=== PATIENT | female | born 1960 | race Caucasian/White ===

== ENCOUNTER 2017-12-02 09:24 | Inpatient (IN) | payer OTHER ==
[~2017-12-02] VITALS: Ht 167.6 cm; Wt 62.6 kg
--- NOTE | ~2017-12-02 | H ---
[address] [address] HISTORY AND PHYSICAL Name: SHELBI SHAW Room: [address] IN ..#: [id number] Admission: 12/02/17 Attend Phys: Gloria Painter MD Discharge: Date of : 60 Report #: [id number] THIS REPORT FOR: //name// Please refer to the History and Physical performed in the physician's office. By: [id number] Records Staff FRANKIE /DOMINICK
[~2017-12-02 09:24] MED LIST: CLEOCIN HCL150 MG PO; FLEXERIL PO; IBUPROFEN 800800 M1 PO; KEFLEX500 M2 PO
[2017-12-02 09:55] LABS: HEMATOCRIT 41.7 % (37.0-47.0); HEMOGLOBIN 13.8 gm/dL (12.0-15.0); MCH 30.7 pg (26.0-34.0); MCV 93.1 fL (80.0-100.0); MPV 7.3 fl. (7.2-11.1); RBC 4.48 mil/uL (4.20-5.00); RDW-CV 17.4 % (10.5-14.5); WBC 12.6 thou/uL (4.0-11.0)
[2017-12-02 10:03] LABS: CALCIUM 9.5 mg/dL (8.5-10.1); CREATININE 0.7 mg/dL (0.6-1.3); POTASSIUM 3.9 mmol/L (3.5-5.1)
[2017-12-02 10:07] LABS: ALBUMIN 3.2 g/dL (3.4-5.0); TOTAL BILIRUBIN 0.4 mg/dL (<0.1-1.0); TOTAL PROTEIN 8.3 g/dL (6.4-8.2)
--- NOTE | 2017-12-02 11:32 | EKG ---
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
[2017-12-02] MEDS ORDERED: ACETAMINOPHEN-1 EAC1 PO (18:06)
--- NOTE | 2017-12-02 18:10 | NUR ---
ASSUMED CARE OF PATIENT AT 1500 AFTER TRANSFER TO ROOM 118 AFTER SURGERY. PATIENT AWAKE, ALERT, AND ORIENTED APPROPRIATELY. PHYSICAL ASSESSMENT COMPLETED AND CHARTED. ADMISSION DOCUMENTATION COMPLETED WELL. GIVEN SCHEDULED MEDICATIONS, SEE EMAR FOR DOCUMENTATION. VITAL SIGNS STABLE. OXYGEN SATURATION WITHIN NORMAL LIMITS ON ROOM AIR. PATIENT TRANSFERS AND AMBULATES INDEPENDENTLY IN ROOM WITHOUT DIFFICULTY. USES CALL LIGHT APPROPRIATELY. DENIES NEEDS AT THIS TIME. CALL LIGHT WITHIN REACH. NURSING WILL CONTINUE TO MONITOR.
[2017-12-02 20:00] VITALS: BP 129/62
[2017-12-02 23:47] VITALS: BP 114/54
[2017-12-03 02:06] LABS: CA 125 46.4 U/mL (0.0-38.1)
[2017-12-03 03:15] VITALS: BP 103/47
[2017-12-03 04:40] LABS: HEMATOCRIT 35.5 % (37.0-47.0); MCH 30.4 pg (26.0-34.0); MCHC 32.4 g/dL (28.0-37.0); MCV 93.6 fL (80.0-100.0); MPV 7.7 fl. (7.2-11.1); NUCLEATED RBCS 0 /100WBC; PLATELET COUNT* 489 thou/uL (150-400); RDW-CV 17.4 % (10.5-14.5); WBC 14.8 thou/uL (4.0-11.0)
[2017-12-03 05:07] LABS: HEMOGLOBIN 11.5 gm/dL (12.0-15.0)
[2017-12-03 05:15] LABS: ALBUMIN 2.8 g/dL (3.4-5.0); CALCIUM 9.1 mg/dL (8.5-10.1); CREATININE 0.6 mg/dL (0.6-1.3); POTASSIUM 4.7 mmol/L (3.5-5.1); TOTAL BILIRUBIN 0.3 mg/dL (<0.1-1.0); TOTAL PROTEIN 6.5 g/dL (6.4-8.2)
--- NOTE | 2017-12-03 05:31 | NUR ---
Alert and oriented x 4. She is up independently in the room. She is voiding well and has had some bloody drainage and has changed her pad as needed. Vitals have been stable. She was medicated x 1 for pain. GI wants her to stay on clear liquids and probably have colonscopy on thursday per Dr Dobbs. She has been awake this shift.
[2017-12-03 06:19] LABS: ABSOLUTE LYMPHOCYTES 1.2 thou/uL (0.8-5.3); ABSOLUTE MONOCYTES 0.3 thou/uL (0.0-1.2); ABSOLUTE NEUTROPHILS 13.3 thou/uL (1.6-8.1)
[2017-12-03 06:20] LABS: ANISOCYTOSIS 1+; PLATELET ESTIMATE ADEQUATE; POIKILOCYTOSIS 1+
[2017-12-03 08:48] VITALS: BP 119/68
[2017-12-03 16:50] VITALS: BP 176/78
--- NOTE | 2017-12-03 17:02 | NUR ---
CM ASSESSMENT: Pt is A&O. Resides at home with her sig other and dtr. Pt independent with ADLs, continues to work outside of the home. Pt has a cane, walker and shower chair that she can use if necessary. No hx of HH. Hx of outpt PT. Strong support sx. Discussed Dr Painter's recommendation for HH [place], Pt plans to discuss with Dr Painter tomorrow. CM to provide [facility] list if Pt is in agreement at [place]. Following.
--- NOTE | 2017-12-03 17:19 | NUR ---
ASSUMED CARE OF PATIENT AFTER REPORT THIS MORNING. PATIENT AWAKE, ALERT, AND ORIENTED APPROPRIATELY. PHYSICAL ASSESSMENT COMPLETED AND CHARTED. COMPLAINED OF PAIN. GIVEN PRN AND SCHEDULED MEDICATIONS, SEE EMAR FOR DOCUMENTATION. VITAL SIGNS STABLE. OXYGEN SATURATION WITHIN NORMAL LIMITS ON ROOM AIR. PATIENT HAS TRANSFERRED AND AMBULATED INDEPENDENTLY IN ROOM WITHOUT DIFFICULTY. HAS STARTED COLON PREP FOR COLONOSCOPY TOMORROW. DENIES NEEDS AT THIS TIME. CALL LIGHT WITHIN REACH. NURSING WILL CONTINUE TO MONITOR.
[2017-12-03 20:00] VITALS: BP 137/75
[2017-12-04] VITALS (7 sets, daily range): BP systolic 98–137; BP diastolic 59–75
[2017-12-04 04:46] LABS: ABSOLUTE BASOPHILS 0.1 thou/uL (0.0-0.2); ABSOLUTE EOSINOPHILS 0.5 thou/uL (0.0-0.7); ABSOLUTE LYMPHOCYTES 2.1 thou/uL (0.8-5.3); ABSOLUTE MONOCYTES 0.6 thou/uL (0.0-1.2); ABSOLUTE NEUTROPHILS 5.8 thou/uL (1.6-8.1); BASOPHILS 1.1 %; HEMATOCRIT 34.6 % (37.0-47.0); HEMOGLOBIN 11.5 gm/dL (12.0-15.0); LYMPHOCYTES 23.2 %; MCH 30.9 pg (26.0-34.0); MCHC 33.1 g/dL (28.0-37.0); MCV 93.1 fL (80.0-100.0); MONOCYTES 6.6 %; MPV 7.5 fl. (7.2-11.1); NUCLEATED RBCS 0 /100WBC; PLATELET COUNT* 450 thou/uL (150-400); POLYS 64.1 %; RBC 3.72 mil/uL (4.20-5.00); RDW-CV 16.7 % (10.5-14.5)
[2017-12-04 04:48] LABS: CALCIUM 8.6 mg/dL (8.5-10.1); CREATININE 0.7 mg/dL (0.6-1.3)
--- NOTE | 2017-12-04 06:56 | NUR ---
Alert and oriented x 4. She is up in her room independently. She has been doing bowel prep and she said theres not much left to come out. Vitals are stable. She's had pain meds x 2. She has slept well intermittenly. She's had nothing by mouth since midnight except for meds with a sip of H2O.
--- NOTE | 2017-12-04 11:28 | OP ---
[address] [address] OPERATIVE REPORT Name: SHAW,SHELBI R Room: [address] IN M.R.#: [id number] Admission: 12/02/17 Attend Phys: Gloria Painter MD Discharge: Date of : 60 Report #: [id number] THIS REPORT FOR: //name// CC: Gloria Bliss MD DATE OF SERVICE: 12/02/2017 PREOPERATIVE DIAGNOSES: 1. Perianal abscess. 2. Fistula in ano. 3. Concern for rectal or vaginal malignancy. POSTOPERATIVE DIAGNOSES: 1. Perianal abscess. 2. Fistula in ano. 3. Concern for rectal or vaginal malignancy. PROCEDURE: 1. Incision and drainage of perianal abscess. 2. Placement of Seton for fistula in ano. 3. Rigid proctosigmoidoscopy. 4. Biopsy of rectal and vaginal mass. 5. Excision of perianal lesion. SURGEON: Gloria Painter MD TERRITORY MANAGER GENERAL SALES: Ricky Ji DO ESTIMATED BLOOD LOSS: 30 mL. COMPLICATIONS: None. FINDINGS: 1. Perianal abscess, anterior right lateral with communication of abscess cavity into rectum and vagina. 2. Lesion most suspicious for anterior rectal cancer extending from anal verge up to 11 cm involving 120 degrees of anterior midline with extension to left anterior mass at anal margin as well as evidence for extension into the posterior wall of the vagina. ANESTHESIA: LMA. [place]'[address] [address] OPERATIVE REPORT Name: SHELBI SHAW Kody Room: [address] M.R.#: [id number] Admission: 12/02/17 Attend Phys: Gloria Painter MD Discharge: Date of : 60 Report #: [id number] SPECIMENS: 1. Purulent fluid. 2. Rectal mass. 3. Vagina mass. DESCRIPTION OF PROCEDURE: Full informed consent obtained preoperatively. Full discussion of risks, benefits, alternatives questions answered. The patient understood risk of bleeding, infection, reoperation, recurrence of abscess or fistula. Findings of either benign or malignant process, change in fecal incontinence or stenosis and catastrophic complications up to including cardiopulmonary failure and . The patient understood and wished to proceed. She was taken to the operating room. We prepped and draped in standard sterile fashion in lithotomy, began with inspection. Of note, there was pus from 2 sites at the right anterolateral area and the anal margin. I inspected in the vagina. There was a large posterior midline mass and on digital rectal exam, there was a mass extending from the anal verge up to approximately 11 cm. The most proximal border of this was palpable on the end of the finger tip. I disbanded the anterior midline 120 degrees. I first began by making incision and drainage overlying 2 areas of fistula, right lateral area. This was cultured. There was copious volume of pus released from this area. Next, I did probe with fistula probe and there was clear extension into both vagina and the rectum. Next, I turned my attention to the external mass, left anterior. It appeared initially to be completely separate from the internal mass and I had suspicion for a resolving thrombosed hemorrhoid, however, it appeared to be direct extension from the rectal mass internally through the sphincters to this left anterior lateral eroded the area. Excision of approximately 3 x 3 cm of tissue was performed; however, when this was noted to be clearly direct extension of the tumor to the skin. I only took enough biopsies to confirm diagnosis. The Chairez bivalve was placed in the anoscope. I inspected all areas. Findings as above. I did take internal biopsies as well from the most concerning point of the mass. This was rather more rectal biopsy and in addition the vagina mass was biopsied separately in case this was different pathology as opposed to direct rectal extension. Next, I irrigated the wound copiously. I performed rigid proctosigmoidoscopy up to approximately 10 cm. Combination of stool and lighting made it difficult to go beyond this point. Next, I used lacrimal probe through the opening and easily advanced into the rectum. A 5 Ethibond was used as a Seton and anchored here securely for this high suprasphincteric fistula, right lateral which was likely from direct tumor spread. All pathologies are pending, however, clinically it is most compatible with involving eroding rectal cancer. Local was applied, sterile dressing applied. Sponge, needle and instrument [place] [address] OPERATIVE REPORT Name: SHELBI SHAW Room: [address] .R.#: [id number] Admission: 12/02/17 Attend Phys: Gloria Painter MD Discharge: Date of : 60 Report #: [id number] of the case. Iodoform dressing in place to an open wound. The patient tolerated well. <ELECTRONICALLY SIGNED> By: Gloria Painter MD 12/04/17 1128 1457 1651Darcchristelle Painter MD /nt
--- NOTE | 2017-12-04 13:00 | NUR ---
PT.OFF FLOOR FOR COLONOSCOPY.
--- NOTE | 2017-12-04 17:14 | NUR ---
ASSUMED CARE OF PATIENT AFTER MORNING REPORT. ALERT AND ORIENTED X4. ASSESSMENT COMPLETED AND CHARTED. PATIENT HAS HAD NO COMPLAINTS OF NAUSEA THIS SHIFT. PAIN HAS BEEN MANAGED WITH MEDICATION. PATIENT HAD AN EGD TODAY AND RETURNED TO THE UNIT AT APPROXIMATELY 1430. PATIENT IS RESTING COMFORTABLY IN BED AT THIS TIME. HOURLY ROUNDS HAVE BEEN MAINTAINED. CALL LIGHT IS WITHIN REACH. NURSING WILL CONTINUE TO MONITOR.
[2017-12-05 04:18] VITALS: BP 108/52
[2017-12-05 04:31] LABS: ABSOLUTE BASOPHILS 0.1 thou/uL (0.0-0.2); ABSOLUTE EOSINOPHILS 0.5 thou/uL (0.0-0.7); ABSOLUTE LYMPHOCYTES 1.8 thou/uL (0.8-5.3); ABSOLUTE MONOCYTES 0.5 thou/uL (0.0-1.2); ABSOLUTE NEUTROPHILS 3.6 thou/uL (1.6-8.1); EOSINOPHILS 7.8 %; HEMATOCRIT 33.4 % (37.0-47.0); HEMOGLOBIN 11.2 gm/dL (12.0-15.0); LYMPHOCYTES 27.5 %; MCHC 33.5 g/dL (28.0-37.0); MCV 92.5 fL (80.0-100.0); MONOCYTES 8.4 %; MPV 7.5 fl. (7.2-11.1); NUCLEATED RBCS 0 /100WBC; PLATELET COUNT* 424 thou/uL (150-400); POLYS 55.3 %; RBC 3.61 mil/uL (4.20-5.00); RDW-CV 16.5 % (10.5-14.5); WBC 6.4 thou/uL (4.0-11.0)
[2017-12-05 04:37] LABS: CALCIUM 8.7 mg/dL (8.5-10.1); CREATININE 0.7 mg/dL (0.6-1.3); POTASSIUM 4.6 mmol/L (3.5-5.1)
--- NOTE | 2017-12-05 05:36 | NUR ---
ALERT AND ORIENTED. UP AD NICKI IN ROOM. USING PO PAIN MEDICATION TO HELP WITH RECTAL PAIN. PATIENT STATED SHE WAS WEARING A BRIEF DUE TO SMALL AMOUNT OF RECTAL BLEEDING. IVF INFUSING WITHOUT DIFFICULTY. PO ANTIBIODIC GIVEN WITHOUT ADVERSE SIDE EFFECT OR REACTIONS. CALL LIGHT WITHIN REACH.
[2017-12-05 08:11] VITALS: BP 125/61
[2017-12-05 13:23] VITALS: BP 125/61
--- NOTE | 2017-12-05 16:37 | NUR ---
ASSUMED CARE OF PATIENT AFTER MORNING REPORT. ALERT AND ORIENTED X4. ASSESSMENT COMPLETED AND CHARTED. VSS ON ROOM AIR. PATIENT HAS HAD NO COMPLAINTS OF NAUSEA THIS SHIFT. PAIN HAS BEEN MANAGED WITH PAIN MEDICATION. ANTIBIOTICS GIVEN ORDERED. PATIENT RESTED COMFORTABLY IN BED THROUGHOUT SHIFT. PATIENT DISCHARGED AT 1625. ALL PERSONAL BELONGINGS LEFT WITH PATIENT. PRESCRIPTION AND DISCHARGE INFORMATION SENT WITH PATIENT UPON DISCHARGE.
--- NOTE | 2017-12-07 14:28 | S ---
[place] [address] SURGICAL PATH RPT PROCEDURE Name: MYRANDA MCCORD Room: [address] IN M.R.#: [id number] Admission: 12/02/17 Date of : 60 Discharge: 12/05/17 Report #: [id number] Path Case #: [id number] PATHOLOGY REPORT COLLECTION DATE: 12/04/2017 RECEIVED DATE: 12/04/2017 SUBMITTING PHYS: Dr. Osbaldo Torre OTHER PHYS: Dr. Gloria Rose, SPECIMEN(S) RECEIVED: A.Sigmoid polyps B.Rectal polyp C.Ulcerated rectal mass biopsy * * * * * * * * * * * * FINAL DIAGNOSIS: A. Sigmoid polyps: - Two fragments of hyperplastic polyp(s) and one tubular adenoma, negative for high-grade dysplasia. B. Rectal polyp: - Serrated adenoma with prominent acute inflammation, negative for high-grade dysplasia. C. Ulcerated rectal mass biopsy: - ULCERATED COLONIC ADENOCARCINOMA, MODERATELY DIFFERENTIATED. SEE COMMENT. COMMENT: Recent rectal and vaginal biopsies as well as "thrombosed hemorrhoids" all show colonic adenocarcinoma ([id number] A-C). Dr. Torre notified at approximately 1425 on 12/07/19. (BELEN:pit; 12/07/2017) PATHOLOGIST: Arsalan Owens M.D. REPORT ELECTRONICALLY SIGNED BY: Arsalan Owens M.D. DATE/TIME: 12/07/2017 14:27 * * * * * * * * * * * * GROSS PATHOLOGY: A. The specimen is received in formalin, labeled "Mccord, Myranda, sigmoid polyps," and consists of 3 fragments of kong soft tissue measuring between 0.5 x 0.4 x 0.3 cm and 0.3 x 0.2 x 0.1 cm. They are entirely submitted in cassette A1. B. The specimen is received in formalin, labeled "Mccord, Myranda, rectal polyp," and consists of a polypoid segment of pink-kong soft tissue measuring 0.9 x 0.8 x 0.6 cm. It is inked, sectioned, [place] [address] SURGICAL PATH RPT PROCEDURE Name: MYRANDA MCCORD R Room: [address] IN [facility].#: [id number] Admission: 12/02/17 Date of : 60 Discharge: 12/05/17 Report #: [id number] Path Case #: [id number] entirely submitted in cassette B1. C. Received in formalin labeled "Mccord, Myranda, ulcerated rectal mass biopsy," are multiple (more than 5) segments of kong soft tissue measuring 2.0 x 0.5 x 0.1 cm in aggregate dimensions. The specimen is submitted entirely in cassette C1. (SDY; 12/04/2017) CLINICAL HISTORY: Colonoscopy INITIAL CPT CODE(S): A; 63112 B; 05569 C; 51365 Professional services performed by [facility] at [facility] [address] [facility], [place] [address] Technical services performed by [facility] at [address] [place] [address], [address], [place] [address]. [facility] [address] [place] [address] PHONE: [phone] DIRECTOR: Adarsh Chakraborty M.D. * * * END OF REPORT * * *
--- NOTE | 2017-12-25 19:58 | CON ---
[address] [address] CONSULTATION Name: SHELBI SHAW Room: [address] IN M.R.#: [id number] Admission: 12/02/17 Attend Phys: Gloria Painter MD Discharge: 12/05/17 Date of : 60 Report #: [id number] THIS REPORT FOR: //name// CC: Sean Mahmood DATE OF SERVICE: 12/03/2017 REFERRING PHYSICIAN: Dr. Gloria Painter. REASON FOR CONSULTATION: Probable anal or rectal cancer. IMPRESSION: 1. Status post recent surgery for suspected perianal abscess and possible either anorectal or vaginal malignancy. 2. Abnormal CAT scan demonstrating a long segment of circumferential thickening at the level of anus and rectum, extending into the perineum suggestive of the same. 3. Enlarged pelvic, perirectal and extraperitoneal lymph nodes compatible with metastatic lymphadenopathy. 4. Bowel changes suspicious for problems related to rectal cancer. PLAN: At the present time, we will attempt to get the patient's colon cleaned out today and tomorrow and if possible, proceed with full colonoscopy tomorrow afternoon. I have discussed the plan with the patient as well and she is agreeable to the same. HISTORY OF PRESENT ILLNESS: The patient is a very pleasant, but unfortunate 57-year-old white female who thought that she was having an exacerbation of her Bartholin's cyst. She had these problems off and on for quite some time, but she has had problems recently with some bleeding per rectum, which she attributes to hemorrhoids. She has never undergone any previous studies of her lower GI tract in the past. She underwent surgical intervention yesterday with findings suspicious for malignancy. She is now here for evaluation. ALLERGIES: SULFA. MEDICATIONS AT HOME: Cephalexin, cyclobenzaprine, ibuprofen, and Tylenol #3. PAST MEDICAL AND SURGICAL HISTORY: Remarkable for previous tonsillectomy [place] [address] CONSULTATION Name: SHELBI SHAW Room: [address]#: [id number] Admission: 12/02/17 Attend Phys: Gloria Painter MD Discharge: 12/05/17 Date of : 60 Report #: [id number] SOCIAL HISTORY: The patient smokes half pack to a pack per day. Drinks couple of beers a night. FAMILY HISTORY: Remarkable for leukemia, gynecologic cancer and breast cancer. PHYSICAL EXAMINATION: GENERAL: Revealed ill-appearing 57-year-old white female who is awake and alert. CARDIOPULMONARY: Revealed a regular rate and rhythm. LUNGS: Clear. ABDOMEN: Soft, not tender. LABORATORY TEST: From today revealed a white count of 14.8, hemoglobin 11.5, platelet count 489,000, MCV is 93.6, RDW is 17.4. Sodium 137, potassium 4.7, chloride 102, bicarbonate 26, BUN 8, creatinine 0.6, total bilirubin 0.3, alkaline phosphatase ____, AST 15, ALT 13. Her albumin is 2.8. Her CEA level was 519 and CA-[address] scan of the abdomen and pelvis performed on 12/02 was reviewed. She has 2 large low attenuated lesions noted in the right lobe of the liver measuring up to 8 cm in size, suspicious for metastatic disease. There is no adenopathy or pulmonary nodule noted on the CT scan of the chest. She has prominent thickening of the rectum noted extending into perianal tissues over an 8-9 cm segment. MRI of the pelvis revealed a large segment of circumferential wall thickening at the anus and rectum extending into the perineum with apparent component of tumor extending anteriorly from the anterior margin of the tumor with extensions into the mesorectal fascia and into the perineum and extending anterior to the region of the distal urethra. ____ also appeared to involve the lower vagina. There are some rectal nodes that are enlarged as well as bilateral inguinal nodes. DISCUSSION: At the present time, the patient has more than likely stage 4 rectal cancer with invasive disease. We will proceed with endoscopic evaluation tomorrow and make further recommendations thereafter. <ELECTRONICALLY SIGNED> By: Luis Dobbs DO 12/25/17 1958 1723 0104Luis Dobbs DO /nt
--- NOTE | 2018-02-22 16:09 | S ---
[place] [address] SURGICAL PATH RPT PROCEDURE Name: MYRANDA MCCORD Kody Room: [address] IN M.R.#: [id number] Admission: 12/02/17 Date of : 60 Discharge: 12/05/17 Report #: [id number] Path Case #: [id number] PATHOLOGY REPORT COLLECTION DATE: 12/02/2017 RECEIVED DATE: 12/03/2017 SUBMITTING PHYS: Dr. Gloria Painter OTHER PHYS: DO Dr. Dale Ray Dr., Dr. ADDENDUM REPORT (Order Date: 12/10/2017 13:31) ADDENDUM COMMENT: Mismatch repair (MMR) protein immunohistochemical staining was performed. Specimen: Formalin fixed paraffin embedded tissue Specimen ID: [id number], A2 Reason for testing: To evaluate for evidence of defective mismatch repair proteins. Method: Immunohistochemical staining for the presence or absence of protein expression of one or more of the following MMR protein markers: MLH1, MSH2, MSH6 and PMS2. Tumor type: Colonic adenocarcinoma Results: MLH1 - Preserved MSH2 - Preserved MSH6 - Preserved PMS2 - Preserved Mismatch Repair Status: MMR Proficient (MMR-P) Interpretation: (MMR-P) All four MMR proteins are preserved within tumor cells. This suggests the presence of normal DNA mismatch repair function within the tumor and an observable defect in mismatch repair is not identified. The likelihood that this patient has an inherited germline mutation syndrome due to defective mismatch repair is reduced but not totally eliminated. If the patient has a strong personal or family history of HPNCC/Hollins syndrome related cancers (colorectal, endometrial, gastric, ovarian, pancreatic, ureter/renal pelvis, biliary tract, brain, small bowel and Lu-Messi syndrome), consider MSI testing by PCR methodology. Suggest clinical correlation and follow up. These test results are designed for screening purposes only and are useful tools in identifying cancer patients that are more likely to have Hollins Syndrome related diagnoses. Tests should be interpreted in the context of clinical findings, family history and laboratory data. Abnormal IHC results for MMR protein expression are not considered diagnostic for [place] [address] SURGICAL PATH RPT PROCEDURE Name: MCCORD,MYRANDA R Room: [address] DIS IN M.R.#: [id number] Admission: 12/02/17 Date of : 60 Discharge: 12/05/17 Report #: [id number] Path Case #: [id number] (BELEN:kody; 12/10/2017) Professional services performed by [facility] at [facility], [facility] [place] [address]. Technical services performed by [facility] at [address] [place] [address], [address] [place] [address]. ELECTRONICALLY SIGNED BY: Arsalan Owens M.D. DATE/TIME:12/10/2017 14:06 SPECIMEN(S) RECEIVED: A.Rectal biopsies B.Vaginal biopsies C.Thrombosed hemorrhoids * * * * * * * * * * * * FINAL DIAGNOSIS: A. Rectal biopsies: - COLONIC ADENOCARCINOMA, MODERATELY DIFFERENTIATED, INVOLVING SKIN AND UNDERLYING FIBROMUSCULAR SOFT TISSUES WITH EXTENSIVE INVOLVEMENT OF INKED EDGES. SEE COMMENT. B. Vaginal biopsies: - COLONIC ADENOCARCINOMA, MODERATELY DIFFERENTIATED, INVOLVING SQUAMOUS MUCOSA AND UNDERLYING FIBROMUSCULAR SOFT TISSUES, WITH EXTENSIVE INVOLVEMENT OF INKED EDGES. SEE COMMENT. C. Thrombosed hemorrhoids: - SKIN WITH EXTENSIVE INVOLVEMENT BY COLONIC ADENOCARCINOMA, MODERATELY DIFFERENTIATED, IN ASSOCIATION WITH SMALL HEMORRHOIDS SHOWING ORGANIZING THROMBOSIS. SEE COMMENT. (BELEN:akira; 12/04/2017) COMMENT: In both the rectal biopsies and vaginal biopsies (A and B), the tumor is noted to show a villiform nature at its superficial aspects. A panel of properly controlled immunohistochemical stains performed on the vaginal lesion shows the following results supporting the classification: CDX2: positive CK20: positive CA125: negative PAX-8: negative Mismatch repair/microsatellite instability protein testing will be performed on A2 and will be the subject of a separate report. Preliminary findings discussed with Dr. Painter at approximately 1620 on 12/04/2017. Specimens A, B, and C reviewed with Dr. Tom Herrera, who agrees with the diagnoses. (BELEN:akira; 12/04/2017) PATHOLOGIST: Arsalan [place] [address] SURGICAL PATH RPT PROCEDURE Name: MYRANDA MCCORD Kody Room: [address] IN M.R.#: [id number] Admission: 12/02/17 Date of : 60 Discharge: 12/05/17 Report #: [id number] Path Case #: [id number] REPORT ELECTRONICALLY SIGNED BY: Arsalan Owens M.D. DATE/TIME: 12/07/2017 12:07 * * * * * * * * * * * * GROSS PATHOLOGY: A. The specimen is received in formalin, labeled "Mccord, Myranda, rectal biopsies," and consists of 5 fragments of brown and polypoid soft tissue measuring between 1.1 x 1.0 x 0.5 cm and 0.5 x 0.4 x 0.3 cm. They are inked, sectioned, and entirely submitted in cassettes A1-A2. B. The specimen is received in formalin, labeled "Mccord, Myranda, vaginal biopsies," and consists of a single pink-kong and polypoid segment of soft tissue measuring 1.0 x 1.0 x 0.8 cm. It is inked, sectioned, and entirely submitted in cassette B1. C. Received in formalin labeled "Mccord, Myranda, thrombosed hemorrhoids," are 4 segments of kong-pink epithelial-covered tissue ranging from 1.0 x 0.8 x 0.3 to 2.7 x 2.0 x 1.0 cm in maximum dimensions. The epithelial surfaces appear intact, without grossly apparent lesions. On cut section, the subepithelial tissue has a highly vascular appearance. Blankmaker tissue is submitted in cassette C1. (SDY; 12/03/2017) CLINICAL HISTORY: Rectal mass INITIAL CPT CODE(S): A; 93421, 18334, 17613, 02007, 90240 B; 56205, 43055, 73874, 89333, 48166 C; 83422, 36939, 74332, 42415, 02028 NRASMAPL; 09251, 90083, 65867 Professional services performed by [facility] at [address] [address] Technical services performed by [facility] at [address] [place] [address], [address], [place] [address]. PROCEDURE REPORT (Order Date: 02/13/2018 00:00) COMMENT: The slides were marked for testing, and sent at the request of Dr. Robin Schultz. NRAS testing was performed by [facility] on block C1. Please see SCANNED IMAGES under LABORATORY for separate report of results. (BELEN:adolph; d/t: 02/22/2018) PATHOLOGIST: Arsalan Owens M.D. REPORT ELECTRONICALLY SIGNED BY: Arsalan [place] [address] SURGICAL PATH RPT PROCEDURE Name: MYRANDA MCCORD Kody Room: [address] IN [facility]#: [id number] Admission: 12/02/17 Date of : 60 Discharge: 12/05/17 Report #: [id number] Path Case #: [id number] DATE/TIME: 02/22/2018 16:07 PROCEDURE REPORT (Order Date: 02/13/2018 00:00) COMMENT: The slides were marked for testing, and sent at the request of Dr. Robin Schultz. KRAS testing was performed by [facility] on block C1. Please see SCANNED IMAGES under LABORATORY for separate report of results. (BELEN:adolph; d/t: 02/22/2018) PATHOLOGIST: Arsalan Owens M.D. REPORT ELECTRONICALLY SIGNED BY: Arsalan Owens M.D. DATE/TIME: 02/22/2018 16:08 [facility] [address] [address] PHONE: [phone] DIRECTOR: Adarsh Chakraborty M.D. * * * END OF REPORT * * *
== END 2017-12-05 16:33 | disposition home or self-care (01) | DRG 347 ==
LOC: M.SUR 09:24 → M.TBA 13:24 → M.ORTHSURG 13:24 → M.SUR 16:26 → M.ORTHSURG 12-05 16:33
PROVIDERS: Otolaryngology Otolaryngology/Facial Plastic Surgery; ADMIT Surgery
DX: C20 Malignant neoplasm of rectum (principal); E43 Unspecified severe protein-calorie malnutrition; K61.2 Anorectal abscess; R65.10 Systemic inflammatory response syndrome (SIRS) of non-infectious origin without acute organ dysfunction; F17.210 Nicotine dependence, cigarettes, uncomplicated; K57.30 Diverticulosis of large intestine without perforation or abscess without bleeding; K64.8 Other hemorrhoids; Z79.899 Other long term (current) drug therapy; Z80.6 Family history of leukemia; Z80.3 Family history of malignant neoplasm of breast

== ENCOUNTER → 2017-12-09 | Outpatient (CLI) | payer OTHER ==
[~2017-12-09] MED LIST changes: +ACETAMINOPHEN-1 EAC1 PO
--- NOTE | 2017-12-22 23:22 | ONC ---
[address] [address] RADIATION ONCOLOGY NOTE Name: SHELBI SHAW Room: [facility]#: [id number] Admission: 12/09/17 Attend Phys: Chuy Martins MD Discharge: Date of : 60 Report #: [id number] THIS REPORT FOR: //name// CC: Chuy Mahmood DATE OF SERVICE: 12/09/2017 [facility] Phone- [phone] REFERRING PHYSICIANS: Dr. Gloria Painter; Chyna Schultz MD; Dr. Torre; Dr. Salas Rose and Dr. Mahmood from Gynecology. 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 HISTORY OF PRESENT ILLNESS: The patient has a stage IV rectal cancer. The rectal cancer is symptomatic. It is putting pressure on the rectal area. It is breaking through the perirectal skin. It is bleeding and it also has a discharge and causes pain. The patient takes about 1-2 Tylenol with codeine per day. She presents for consideration for treatment of this rectal cancer. She has findings consistent with possible liver metastases. MEDICATIONS: Lortab, ibuprofen, and she was also placed on clindamycin. SOCIAL HISTORY: She smokes about half a cigarette to 1 cigarette a day. REVIEW OF SYSTEMS: GASTROINTESTINAL: The patient does have pelvic pain and she has about 3-4 bowel movements a day. She has a reasonably good appetite. She does have some bright red blood per rectum as well. RESPIRATORY: The patient was not short of breath. PHYSICAL EXAMINATION: With my nurse, Maribel Carranza, present: VITAL SIGNS: The patient's weight is 131.8 pounds, blood pressure 135/73, pulse 75, respirations 20. LYMPH NODES: She has no palpable cervical or supraclavicular lymphadenopathy. She has multiple 1 cm right inguinal lymph nodes that were firm. GENERAL PSYCHIATRIC: She was alert, oriented, in no acute distress. EYES: Pupils were equal, round, reactive to light and accommodation. HEAD, EARS, NOSE AND THROAT: Mouth had no visible lesions. HEART: Had a regular rate and rhythm without murmur. LUNGS: were [place] [address] RADIATION ONCOLOGY NOTE Name: SHELBI SHAW Kody Room: [facility]#: [id number] Admission: 12/09/17 Attend Phys: Chuy Martins MD Discharge: Date of : 60 Report #: [id number] ABDOMEN: Not tender. Spleen was not palpable. Liver was about 2.5 cm below the right costal margin. RECTAL: She did have a lesion that she could feel right by the dentate line that was anterior and on the patient's left. It was breaking through the perirectal skin as well and there was some visible blood and discharge. NEUROLOGIC: Cranial nerves II-XII were intact. Sensation was intact. She had 5/5 strength in her extremities. Again, she was seen with my nurse, Maribel Carranza, present. LABORATORY DATA: CEA level was 519.4 on 12/02/2017. Her CA-125 was elevated too at 46.4 on 12/03/2017. Sodium 137, potassium 4.7, BUN 8, creatinine 0.6, AST 15. White blood count 14.8, hemoglobin 11.5, platelets 489,000. ASSESSMENT AND PLAN: 1. The patient has stage IV rectal cancer with a symptomatic rectal mass- The treatment options are chemotherapy alone versus chemoradiotherapy followed by chemotherapy. The pelvic radiation therapy with chemotherapy followed by additional chemotherapy will probably give her better pelvic control and pain relief, so she was offered that option. The risks, benefits and logistics of radiation therapy to that rectal cancer and the pelvis were explained to the patient in detail. She gave her witnessed informed consent to proceed with radiation therapy. She will be scheduled for radiation therapy and I also informed my staff to give her vaginal dilators. 2. Pain control- She was given a prescription for hydrocodone and ibuprofen to help with pain control. 3. Nutrition- She was encouraged to increase her nutritional intake to keep her weight stable. Thank you for allowing me to participate in the care of this patient. <ELECTRONICALLY SIGNED> By: Chuy Martins MD 12/22/17 2322 1242 2322Dnasrin Martins MD /nt
== END ==
LOC: M.RTH 01:33 → EDSTATUS 09:00 → M.RTH 09:18
DX: C20 Malignant neoplasm of rectum (principal)

== ENCOUNTER → 2017-12-18 | Outpatient (CLI) | payer OTHER | LOC: M.RAD 13:37 | DX: C18.9 Malignant neoplasm of colon, unspecified (principal) ==

== ENCOUNTER → 2018-01-19 | Outpatient (CLI) | payer OTHER | LOC: M.ULTRA 14:56 | DX: M79.89 Other specified soft tissue disorders (principal) ==

== ENCOUNTER → 2018-02-03 | Outpatient (CLI) | payer OTHER ==
--- NOTE | 2018-02-03 16:54 | 2DMMODE ---
[place] [address] 2 D/M-MODE ECHOCARDIOGRAM Name: SHELBI SHAW Room: [facility]#: [id number] Admission: 02/03/18 Attend Phys: Bibiana Roger Discharge: Date of : 60 Date of Service: 02/03/18 1654 Report #: [id number] THIS REPORT FOR: //name// APPROVED REPORT Study performed: 02/03/2018 14:21:03 EXAM: Comprehensive 2D, Doppler, and color-flow Echocardiogram Patient Location: Out-Patient Status: routine BSA: 1.68 Other Information Study Quality: Good Indications Chemo Peripheral Edema 2D Dimensions LVEF(%): 65.11 (>50%) IVSd: 9.96 (7-11mm) LVOT Diam: 20.11 (18-24mm) LVDd: 44.84 mm PWd: 9.40 (7-11mm) Ascending Ao: 26.84 (22-36mm) LVDs: 28.92 (25-40mm) Aortic Root: 26.39 mm Roca's LVEF: 65.11 % Aortic Valve AoV Peak Ismael.: 1.42 m/s AO Peak Gr.: 8.11 mmHg LVOT Max P.13 mmHg AO Mean Gr.: 4.97 mmHg LVOT Mean P.89 mmHg LVOT Max V: 1.33 m/s AO V2 VTI: 27.33 cm LVOT Mean V: 0.76 m/s MICHAELA (VTI): 2.61 cm2 LVOT V1 VTI: 22.48 cm Mitral Valve E/A Ratio: 0.96 MV Decel. Time: 217.55 ms MV E Max Ismael.: 0.56 m/s MV PHT: 63.09 ms MVA (PHT): 3.49 cm2 [place] [address] 2 D/M-MODE ECHOCARDIOGRAM Name: SHAWNINASHELBI R Room: [facility]#: [id number] Admission: 02/03/18 Attend Phys: Bibiana Roger Discharge: Date of : 60 Date of Service: 02/03/18 1654 Report #: [id number] TDI E/Lateral E': 3.50 E/Medial E': 6.22 Medial E' Ismael.: 0.09 m/s Lateral E' Ismael.: 0.16 m/s Pulmonary Valve PV Peak Ismael.: 1.08 m/s PV Peak Gr.: 4.65 mmHg Tricuspid Valve TR Peak Gr.: 16.80 mmHg RVSP: 21.80 mmHg Left Ventricle The left ventricle is normal size. There is normal LV segmental wall motion. There is normal left ventricular wall thickness. Left ventricular systolic function is normal. LVEF is 55-60%. The left ventricular diastolic function is normal. Right Ventricle The right ventricle is normal size. The right ventricular systolic function is normal. Atria The left atrium size is normal. The right atrium size is normal. Aortic Valve The aortic valve is normal in structure. No aortic regurgitation is present. There is no aortic valvular stenosis. Mitral Valve The mitral valve is normal in structure. There is no mitral valve regurgitation noted. No evidence of mitral valve stenosis. Tricuspid Valve The tricuspid valve is normal in structure. Mild tricuspid regurgitation. The RVSP is 22 mmHg. Pulmonic Valve The pulmonary valve is normal in structure. There is no pulmonic valvular regurgitation. Great Vessels The aortic root is normal in size. IVC is normal in size and collapses with >50% [place] [address] 2 D/M-MODE ECHOCARDIOGRAM Name: SHELBI SHAW Room: [facility]#: [id number] Admission: 02/03/18 Attend Phys: Bibiana Roger Discharge: Date of : 60 Date of Service: 02/03/18 1654 Report #: [id number] There is no pericardial effusion. <Conclusion> The left ventricle is normal size. There is normal left ventricular wall thickness. Left ventricular systolic function is normal. LVEF is 55-60%. The left ventricular diastolic function is normal. Mild tricuspid regurgitation. The RVSP is 22 mmHg. Global Longitudinal Strain is -23.89 (within normal limits) <ELECTRONICALLY SIGNED> By: Dallas Gleason MD, FACC 02/03/18 1654 53 53 Dallas Gleason MD, FACC /INF
== END ==
LOC: M.CRD 13:44
DX: I07.1 Rheumatic tricuspid insufficiency (principal); C20 Malignant neoplasm of rectum; C78.7 Secondary malignant neoplasm of liver and intrahepatic bile duct

== ENCOUNTER → 2018-05-11 | Outpatient (CLI) | payer OTHER | LOC: M.CT 13:23 | DX: C78.7 Secondary malignant neoplasm of liver and intrahepatic bile duct (principal); C20 Malignant neoplasm of rectum ==

== ENCOUNTER → 2018-12-07 | Outpatient (CLI) | payer OTHER ==
--- NOTE | 2018-12-08 14:54 | PF ---
[address] [address] PULMONARY FUNCTION REPORT Name: SHELBI SHAW Room: [facility]#: [id number] Admission: 12/07/18 Attend Phys: Chuy Martins MD Discharge: Date of : 60 Report #: [id number] THIS REPORT FOR: //name// CC: Chuy Rose DO DATE OF SERVICE: 12/07/2018 REFERRING PHYSICIAN: Chuy Martins MD. SPIROMETRY: The FEV1/FVC ratio was 72% predicted. The FEV1 2.7 liters at 96% predicted. The FVC was 3.77 at 99% predicted. LUNG VOLUMES: Total lung capacity 5.95 liters at 112% predicted. The DLCO was 88% predicted. This pulmonary function test was within normal limits. No evidence of obstructive or restrictive defect. DLCO was normal. <ELECTRONICALLY SIGNED> By: Shirin Peguero MD 12/08/18 1454 1118 [id number] White MD /nt
== END ==
LOC: M.PUL 10:18
DX: C78.01 Secondary malignant neoplasm of right lung (principal); R91.1 Solitary pulmonary nodule

== ENCOUNTER → 2021-03-08 | Outpatient (CLI) | payer MEDICARE, OTHER ==
[~2021-03-08] MED LIST changes: +AZELASTINE205.5 MCG/ NARES; +COMPAZINE10 MG PO; +DEXAMETHASONE 44 M1 PO; +ELIQUIS5 MG PO; +KLOR-CON M2020 MEQ PO; +LOMOTIL 2.5-0.01 TAB PO; +LOPERAMIDE 2 MG2 M1 PO; +ONDANSETRON HCL4 M2 PO; +ROXICODONE5 M2 PO; +VITAMIN B-650 M1 PO
[2021-03-08 12:45] LABS: APTT 27.1 Seconds (25.0-31.3); INR 1.1; PROTIME 11.8 Seconds (9.20-11.50)
== END | disposition home or self-care (01) ==
LOC: M.LAB 11:49 → M.ULTRA 13:00
PROVIDERS: ATTEND Internal Medicine Hematology & Oncology
DX: R18.8 Other ascites (principal); R14.0 Abdominal distension (gaseous); D64.9 Anemia, unspecified; Z98.890 Other specified postprocedural states; Z79.01 Long term (current) use of anticoagulants; Z88.2 Allergy status to sulfonamides; Z79.899 Other long term (current) drug therapy

== ENCOUNTER 2021-03-11 15:26 | Emergency (ER) | payer MEDICARE, OTHER ==
[~2021-03-11] VITALS: Ht 167.6 cm; Wt 63.0 kg
[~2021-03-11 15:26] MED LIST changes: -AZELASTINE205.5 MCG/ NARES; -COMPAZINE10 MG PO; -DEXAMETHASONE 44 M1 PO; -ELIQUIS5 MG PO; -KLOR-CON M2020 MEQ PO; -LOMOTIL 2.5-0.01 TAB PO; -LOPERAMIDE 2 MG2 M1 PO; -ONDANSETRON HCL4 M2 PO; -ROXICODONE5 M2 PO; -VITAMIN B-650 M1 PO
[2021-03-11] MEDS ORDERED: AZELASTINE205.5 MCG/ NARES (15:41)
[2021-03-11] MEDS ORDERED: DEXAMETHASONE 44 M1 PO (15:41)
[2021-03-11] MEDS ORDERED: FLEXERIL PO (15:41)
[2021-03-11] MEDS ORDERED: ELIQUIS5 MG PO (15:42)
[2021-03-11] MEDS ORDERED: LOMOTIL 2.5-0.01 TAB PO (15:42)
[2021-03-11] MEDS ORDERED: IBUPROFEN 800800 M1 PO (15:43)
[2021-03-11] MEDS ORDERED: KLOR-CON M2020 MEQ PO (15:43)
[2021-03-11] MEDS ORDERED: LOPERAMIDE 2 MG2 M1 PO (15:43)
[2021-03-11] MEDS ORDERED: ROXICODONE5 M2 PO (15:44)
[2021-03-11] MEDS ORDERED: ONDANSETRON HCL4 M2 PO (15:44)
[2021-03-11] MEDS ORDERED: COMPAZINE10 MG PO (15:45)
[2021-03-11] MEDS ORDERED: VITAMIN B-650 M1 PO (15:45)
[2021-03-11 16:15] LABS: MCH 32.2 pg (26.0-34.0); MCHC 32.2 g/dL (28.0-37.0); MCV 99.9 fL (80.0-100.0); MPV 7.3 fl. (7.2-11.1); NUCLEATED RBCS 0 /100WBC; PLATELET COUNT* 99 thou/uL (150-400); RBC 1.96 mil/uL (4.20-5.00); RDW-CV 24.4 % (10.5-14.5)
[2021-03-11 16:19] LABS: CALCIUM 7.9 mg/dL (8.5-10.1); CREATININE 0.7 mg/dL (0.6-1.3); POTASSIUM 3.4 mmol/L (3.5-5.1)
[2021-03-11 16:22] LABS: HEMATOCRIT 19.5 % (37.0-47.0); HEMOGLOBIN 6.3 gm/dL (12.0-15.0)
[2021-03-11 16:23] LABS: ALBUMIN 1.7 g/dL (3.4-5.0); TOTAL BILIRUBIN 0.7 mg/dL (<0.1-1.0); TOTAL PROTEIN 4.5 g/dL (6.4-8.2)
[2021-03-11 16:29] LABS: APTT 25.6 Seconds (25.0-31.3); INR 1.2; PROTIME 12.4 Seconds (9.20-11.50)
[2021-03-11 16:46] LABS: ABSOLUTE EOSINOPHILS 0.1 thou/uL (0.0-0.7); ABSOLUTE LYMPHOCYTES 0.4 thou/uL (0.8-5.3); ABSOLUTE NEUTROPHILS 3.6 thou/uL (1.6-8.1); PLATELET ESTIMATE DECREASED
[2021-03-11 16:47] LABS: ANISOCYTOSIS Occasional; HYPOCHROMASIA Occasional; MICROCYTES Occasional
[2021-03-11 20:24] LABS: URINE BILIRUBIN NEGATIVE (Negative); URINE BLOOD 3+ (Negative); URINE CLARITY CLEAR; URINE COLOR YELLOW; URINE GLUCOSE-RANDOM NEGATIVE (Negative); URINE KETONES NEGATIVE (Negative); URINE LEUKOCYTES-REFLEX NEGATIVE (Negative); URINE NITRITE-REFLEX NEGATIVE (Negative); URINE PROTEIN NEGATIVE (Negative); URINE SPECIFIC GRAVITY <= 1.005 (1.005-1.030); URINE UROBILINOGEN 0.2 E.U./dl (0.2-1.0)
[2021-03-11 20:32] LABS: SQUAMOUS 0-3 Few /LPF (0-3); URINE WBC-REFLEX 0-5 Rare /HPF (0-5)
[2021-03-11 20:33] LABS: BACTERIA-REFLEX 1-9 Few /HPF (None Seen); CASTS None Seen /LPF (None Seen); CRYSTALS None Seen /LPF (None Seen); URINE RBC 3-10 Few /HPF (0-2)
[2021-03-11 21:06] VITALS: BP 109/62
--- NOTE | 2021-03-12 14:14 | EKG ---
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: CD : 1960 Requested By: Dior Onofre Order Number: [id number] MD: Dallas Gleason Measurements Intervals [place] Rate: 89 P: 73 ME: 178 QRS: 11 QRSD: 96 T: QT: 332 QTc: 404 Interpretive Statements Sinus rhythm Low voltage, precordial leads Nonspecific T abnormalities, anterior leads Compared to ECG 12/02/2017 10:41:59 Low QRS voltage now present T-wave abnormality now present Electronically Signed On 03-12-2021 14:14:51 CDT by Dallas Gleason [email or web address] <ELECTRONICALLY SIGNED> By: Dallas Gleason MD, FACC 03/12/21 1414 1629 1629 Dallas Gleason MD, FAC /EPI
== END 2021-03-11 21:09 | disposition short-term general hospital (02) ==
LOC: M.ERS 15:26
PROVIDERS: Nurse Practitioner Family
DX: D64.9 Anemia, unspecified (principal); Z20.822 Contact with and (suspected) exposure to COVID-19; Z98.890 Other specified postprocedural states; Z90.89 Acquired absence of other organs; Z85.41 Personal history of malignant neoplasm of cervix uteri; Z85.05 Personal history of malignant neoplasm of liver; Z88.2 Allergy status to sulfonamides